=== PATIENT | male | born 1980 | race American Indian/Alaskan Native ===

== ENCOUNTER 2021-03-24 12:35 | Outpatient (REF) | payer MEDICAID, SELFPAY ==
[2021-03-24 12:54] LABS: COVID-19 Test Negative (Negative)
== END 2021-03-24 12:36 | disposition home or self-care (01) ==
LOC: HO.LAB 12:35
PROVIDERS: Visit Provider Internal Medicine
DX: Z20.822 Contact with and (suspected) exposure to COVID-19 (principal)
CPT/HCPCS: 36415; 87635; C9803

== ENCOUNTER 2021-07-08 15:39 | Outpatient (REF) | payer MEDICAID, SELFPAY ==
[2021-07-08 16:12] LABS: COVID-19 Test Negative (Negative)
== END 2021-07-08 15:40 | disposition home or self-care (01) ==
LOC: HO.LAB 15:39
PROVIDERS: PCP Nurse Practitioner Family; Visit Provider Internal Medicine
DX: Z20.822 Contact with and (suspected) exposure to COVID-19 (principal)
CPT/HCPCS: 36415; 87635; C9803

== ENCOUNTER 2023-07-28 18:27 | Emergency (ER) | payer MEDICAID, SELFPAY ==
--- NOTE | ~2023-07-28 | CT_ITS ---
EXAMINATION: CT HEAD WITHOUT CONTRAST CT FACIAL BONES WITHOUT CONTRAST CLINICAL INFORMATION: Trauma. Facial trauma. COMPARISON: None available. TECHNIQUE: Imaging was performed from the skull base to vertex without intravenous administration of contrast. In addition, helical noncontrast CT imaging was acquired through the facial bones and source images were reviewed along with axial reconstructions and sagittal and coronal MPRs. This CT examination was performed using dose optimization techniques as appropriate, variously including the following: *Automated exposure control. *Adjustment of mA and/or kV according to patient size (this includes techniques or standardized protocols for targeted exams where dose is matched to indication/reason for exam; i.e. extremities or head). *Use of iterative reconstruction technique. DLP: 1223 mGy-cm FINDINGS: Head: There is no evidence of acute intracranial hemorrhage or edematous territorial infarction. Armas-white matter differentiation is preserved. There is no abnormal attenuation within the brain parenchyma. The ventricles are normal in morphology and size. No evidence for obstructive hydrocephalus. No abnormal mass effect or midline shift. No extra-axial fluid collections. No acute soft tissue or osseous calvarial abnormalities. Maxillofacial Bones: Multifocal odontogenic enamel erosions. Periapical lucencies associated with the maxillary left 3rd molar. The maxillary right central and lateral incisors are absent. There is a mildly displaced fracture extending through the alveolar process of the maxilla in this distribution. Moderate soft tissue edema/hematoma of the upper lip. No evidence of additional maxillofacial bone fractures. The zygomatic arches remain intact. No nasal bone fracture. The nasal septum remains midline. No evidence of additional mandibular or maxillary fracture. The mandibular condyles remain well-seated in their respective temporal articular grooves. Normal appearance of the intraconal and extraconal fat. No evidence of traumatic injury to the extraocular musculature or globes. Mild mucosal thickening of the paranasal sinuses. The mastoid air cells and middle ear cavities are clear. No layering fluid collections. CT/CT facial bones wo IV con IMPRESSION: 1. No evidence of acute intracranial hemorrhage or edematous territorial infarction. 2. The maxillary right central and lateral incisors are absent. There is a mildly displaced fracture extending through the alveolar process of the maxilla in this distribution. Moderate soft tissue edema/hematoma of the upper lip. 3. No additional acute fractures of the maxillofacial bones.
[2023-07-28 20:23] VITALS: BP 155/65; PULSE 55; TEMP 36.4; O2SAT 97; BMI 37.5
--- NOTE | 2023-07-28 22:43 | ED.HEATRA ---
HPI - Head Injury General Chief complaint: Dental/Oral Stated complaint: Dental pain Time Seen by Provider: 07/28/23 22:34 Source: patient Mode of arrival: ambulatory Limitations: no limitations History of Present Illness HPI Narrative: 42 yo male with no sig PMH not on thinners was playing flag football this AM was struck in mouth area by male with forearm and knocked to ground with LOC x 30 seconds. Lost two front teeth did not put teeth in any solution. Has not had any bleeding. Has facial pain and headache. He has not vomited. MD Complaint: head injury Onset (ago): hour(s) (12) Mechanism of Injury: sports related injury Place: outdoors Loss of Consciousness: yes and second(s) (30) Location of injury: face Severity: moderate Quality: dull and aching Radiation: none Other Injuries: dental Associated symptoms: denies other symptoms Related Data Previous Rx's Medication Instructions Recorded amoxicillin 875 mg-potassium 1 tab PO BID #14 tabs 07/28/23 clavulanate 125 mg tablet hydrocodone 5 mg-acetaminophen 325 1 tab PO Q6H PRN pain #15 tabs 07/28/23 mg tablet ondansetron 4 mg disintegrating 4 mg PO Q8H PRN nausea and 07/28/23 tablet vomiting #20 tabs Allergies Allergy/AdvReac Type Severity Reaction Status Date / Time No Known Allergies Allergy Verified 07/28/23 20:23 Review of Systems Review of Systems: Constitutional : No Fever, No Chills, No Fatigue ENT/Mouth : No sore throat, No Rhinorrhea, pos lippain, pos loss of tooth Eyes: No Eye Pain, No Swelling, No Redness, Cardiovascular : No Chest Pain, No SOB, No Dyspnea on Exertion Respiratory : No Cough, No Sputum Gastrointestinal : No Nausea, No Vomiting, No Diarrhea, No abdominal Pain Genitourinary : No Dysuria, No Urinary Frequency, No Hematuria, Musculoskeletal : No joint pain, No Myalgias, No Joint Swelling, no neck pain Skin : No Skin Lesions, No rash Neuro : No Weakness, No Numbness, No Dizziness, positive Headache Psych : No Anxiety/Panic, No Depression All other systems reviewed and are negative PMFSH Past Medical History Attestation statement: The following information was validated with the patient. Medical History No pertinent past medical history Social History Social History (Updated 07/28/23 @ 23:22 by Aide Huertas DO) Patient Tobacco Use Status: Tobacco use Unknown Physical Exam Vital Signs: Vital Signs: Last Vital Signs Temp 97.5 F 07/28/23 20:23 Pulse 55 07/28/23 20:23 BP 155/65 H 07/28/23 20:23 Pulse Ox 97 07/28/23 20:23 O2 Del Method Room Air 07/28/23 20:23 BMI result Body Mass Index 37.5 Appearance: Alert. Oriented X3. No acute distress. Eyes: Pupils equal, round and reactive to light. ENT: Pharynx upper lip contused no laceration both front incisors are missing no lacerations sockets not bleeding, tooth not in solution x 12 hours cannot salvage. no nasal septal hematoma, no raccoon no wang sign, normal TMs bilaterally Neck: Normal inspection. Neck supple. no midline ttp CVS: Normal heart rate and rhythm. Pulses normal. Respiratory: No respiratory distress. Breath sounds normal. Abdomen: Soft and nontender. Skin: Skin warm and dry. Normal skin color. Normal skin turgor. Extremities: No lower extremity edema. No calf ttp Neuro: Oriented X 3. No motor deficit. No sensory deficit. Medical Decision Making Medical Decision Making MDM Narrative: 42 yo male with no PMH not on thinners here with c/o facial trauma - will need CT head given LOC and facial imaging cannot return tooth given timeline and not in solution will need pain medications and antibiotics refer to dentist and possible OMFS no signs of basilar skull fracture GCS 15 which is 12 hours ago. he is not toxic no other injuries. Differential Diagnosis Differential Diagnoses: The differential diagnosis associated with the presentation includes dental trauma. abrasions, concussion, facial fracture Admission/Observation Consideration of admission/observation: Escalation of care including admission/observation considered can follow up with dental surgery and OMFS Independent Interpretation I performed an independent interpretation of an: CT Scan (no ICH) Radiology Impression Discussion of test interpretation with radiology: I have reviewed the radiologist's reading. Prescription Management I considered prescription management with: Pain Medication and Antibiotic Discharge Plan Discharge Clinical Impression: Avulsion of multiple teeth due to trauma Qualifiers: Encounter type: initial encounter Qualified Code(s): S03.2XXA - Dislocation of tooth, initial encounter Maxillary fracture Qualifiers: Encounter type: initial encounter Fracture type: closed Laterality: unspecified laterality Qualified Code(s): S02.401A - Maxillary fracture, unspecified side, initial encounter for closed fracture Patient Disposition: Home, Self-Care Instructions: Facial Fracture (ED), Acute Dental Trauma (ED) Additional Instructions: take a probiotic while on augmentin - more than 8 loose stools a day while on antibiotic is not normal seek care return for facial swelling, yellow drainage from tooth sockets, fevers, severe pain, confusion or any other concerns. finish the antibiotics call the dentist in the morning Multifocal odontogenic enamel erosions. Periapical lucencies associated with the maxillary left 3rd molar. The maxillary right central and lateral incisors are absent. There is a mildly displaced fracture extending through the alveolar process of the maxilla in this distribution. Moderate soft tissue edema/hematoma of the upper lip. SOFT DIET NO CRUNCHY CHEWY HOT FOOD FOR 2 WEEKS, NO SPORTS FOR 4 WEEKS PLEASE FOLLOW UP WITH THE DENTIST SUNDAY AND CALL ORAL SURGEON [facility] [phone] or [phone] Prescriptions: New hydrocodone-acetaminophen 5-325 mg tablet 1 tab PO Q6H PRN (Reason: pain) Qty: 15 0RF Rx Instructions: partial fill okay; Partial Fill upon patient request. ondansetron 4 mg tablet,disintegrating 4 mg PO Q8H PRN (Reason: nausea and vomiting) Qty: 20 0RF amoxicillin-pot clavulanate 875-125 mg tablet 1 tab PO BID Qty: 14 0RF Stand Alone Forms: Work/School Release
[2023-07-28] MEDS: HYDROcodone Bit/Acetam 5/325 TABLET 1 TAB PO (23:27)
[2023-07-28] MEDS: Amoxicillin/Potassium Clav 875 MG TABLET PO (23:28)
[2023-07-28] MEDS: Ondansetron ODT 4 MG TAB.RAPDIS TRANSLINGU (23:28)
== END 2023-07-29 00:26 | disposition home or self-care (01) ==
PROVIDERS: Emergency Provider Emergency Medicine
DX: S02.42XA Fracture of alveolus of maxilla, initial encounter for closed fracture (principal); S03.2XXA Dislocation of tooth, initial encounter; S00.531A Contusion of lip, initial encounter; W50.0XXA Accidental hit or strike by another person, initial encounter; Y93.62 Activity, american flag or touch football; Y92.9 Unspecified place or not applicable; Y99.9 Unspecified external cause status
CPT/HCPCS: 70450; 70486; 99283; 99284

== ENCOUNTER 2024-07-21 10:23 | Emergency (ER) | payer MEDICAID, SELFPAY ==
--- NOTE | ~2024-07-21 | XR_ITS ---
EXAMINATION: XR SHOULDER, RIGHT CLINICAL INFORMATION: rt shoulder injury, patient denies injury COMPARISON: None TECHNIQUE: Four views of the shoulder. FINDINGS: Chronic-appearing comminuted fracture of the distal clavicle with widening of the coracoclavicular joint space and mild widening of the acromioclavicular joint which may reflect acromioclavicular injury, possibly chronic. Soft tissues are unremarkable. Visualized portion of lung appears clear. XR/XR shoulder RT min 2V IMPRESSION: 1. Chronic-appearing comminuted fracture of the distal clavicle with widening of the coracoclavicular joint space and mild widening of the acromioclavicular joint which may reflect sequelae acromioclavicular joint injury, possibly chronic. Recommend correlation with history of trauma. Electronically signed by: Oxana Phillips MD 07/21/2024 12:08 PM EDT
[2024-07-21 10:30] VITALS: BP 155/92; PULSE 67; RESP 18; TEMP 36.6; O2SAT 98; BMI 37.5
--- NOTE | 2024-07-21 12:15 | ED_ITS ---
HPI - Extremity Problem General Chief complaint: Extremity Injury, Upper Stated complaint: R shoulder inj work inj Time Seen by Provider: 07/21/24 11:06 Source: patient Mode of arrival: ambulatory Limitations: no limitations History of Present Illness ED Provider: Pricilla BROWN HPI Narrative: 43-year-old male presents with severe right shoulder pain for the past 2 days status post work-related injury, patient was lifting a large suitcase that was approximately 200 lb, he reports he lost his balance falling right onto his right shoulder since then has been having pain that is worse with movement better at rest. No associated numbness or tingling. He reports decreased range of motion secondary to pain. Denies any previous issues with his right shoulder. He tells me he is still able to move it however with excruciating 10/10 pain. When he fell he did not hit his head no loss of consciousness no neck pain. Patient denies chest pain, shortness of breath, headache, vision [place], dizziness, weakness, nausea, vomiting, abdominal pain. Related Data Previous Rx's ?Medication ?Instructions ?Recorded amoxicillin 875 mg-potassium 1 tab PO BID #14 tabs 07/28/23 clavulanate 125 mg tablet hydrocodone 5 mg-acetaminophen 325 1 tab PO Q6H PRN pain #15 tabs 07/28/23 mg tablet ondansetron 4 mg disintegrating 4 mg PO Q8H PRN nausea and 07/28/23 tablet vomiting #20 tabs ketorolac 10 mg tablet 10 mg PO TID PRN pain 5 days #15 07/21/24 tabs prednisone 20 mg tablet 40 mg (2 x 20 mg) PO DAILY 5 days 07/21/24 #10 tabs Allergies Allergy/AdvReac Type Severity Reaction Status Date / Time No Known Allergies Allergy Verified 07/21/24 10:33 Review of Systems Review of Systems: Yes all other systems are reviewed and are negative PMFSH Past Medical History Attestation statement: The following information was validated with the patient. Source: old records reviewed and nursing notes reviewed Medical History No pertinent past medical history Social History Social History Patient Tobacco Use Status: Tobacco use Unknown Advance Directives: No Advance Directives Information Provided: No Do you have a plan to hurt others: No Plan Physical Exam Vital Signs: Vital Signs: Last Vital Signs Temp 97.9 F 07/21/24 10:30 Pulse 67 07/21/24 10:30 Resp 18 07/21/24 10:30 BP 155/92 H 07/21/24 10:30 Pulse Ox 98 07/21/24 10:30 O2 Del Method Room Air 07/21/24 10:30 BMI result Body Mass Index 37.5 vss Appearance: Alert.? Oriented X3.? No acute distress.? Head: Normocephalic, atraumatic, no step-offs or deformities Eyes: Pupils equal, round and reactive to light.? ENT: Pharynx normal.? Neck: Normal inspection.? Neck supple.? CVS: Normal heart rate and rhythm.? Respiratory: No respiratory distress.? Abdomen: Soft and nontender.? Skin: Skin warm and dry.? Normal skin color.? Normal skin turgor.? Extremities: No lower extremity edema.? No calf ttp. 5/5 strength to left upper extremity and bilateral lower extremities + tenderness to palpation to right distal clavicle all, limited range of motion to right shoulder secondary to pain. However he is able to move it with discomfort in all directions. No wrist drop. 2+ radial and brachial pulses equal bilateral. Normal distal sensation. Capillary refill to upper extremities bilaterally less than 2 seconds. Back: No midline tenderness, no C-spine tenderness, full range of motion, no CVA tenderness bilaterally Neuro: Oriented X 3.? No motor deficit.? No sensory deficit. CN 2-12 intact Medical Decision Making Medical Decision Making MDM Narrative: 43 year old male presents w/ R shoulder pain X 2 days PE 5/5 strength to left upper extremity and bilateral lower extremities + tenderness to palpation to right distal clavicle all, limited range of motion to right shoulder secondary to pain. However he is able to move it with discomfort in all directions. No wrist drop. 2+ radial and brachial pulses equal bilateral. Normal distal sensation. Capillary refill to upper extremities bilaterally less than 2 seconds. HX and PE concerning for ac joint issue vs rotator cuff injury vs inflammatory arthritis. No signs of NV compromise, threat to limb Plan- imaging Differential Diagnosis Differential Diagnoses: The differential diagnosis associated with the presentation includes HX and PE concerning for ac joint issue vs rotator cuff injury vs inflammatory arthritis. No signs of NV compromise, threat to limb Admission/Observation Consideration of admission/observation: Escalation of care including admission/observation considered Possible Lab Data MDM Lab Attestation statement: I reviewed the patient's lab results. Independent Interpretation I performed an independent interpretation of an: Plain X-Ray (XR/XR shoulder RT min 2V IMPRESSION: 1. Chronic-appearing comminuted fracture of the distal clavicle with widening of the coracoclavicular joint space and mild widening of the acromioclavicular joint which may reflect sequelae acromioclavicular joint injury, possibly chronic. Recommend correlati) Radiology Impression Discussion of test interpretation with radiology: I have reviewed the radiologist's reading. External Record Review External record reviewed: Outpatient record Prescription Management I considered prescription management with: Pain Medication Chronic Conditions Patient?s care impacted by: Other (obesity ) Discharge Plan Discharge Clinical Impression: Acute pain of right shoulder Patient Disposition: Home, Self-Care Instructions: Arthralgia (ED), Shoulder Pain (ED) Additional Instructions: Take your medications as prescribed. If you were prescribed antibiotics today, it is important that you take your medication to their entirety, do not skip any doses, do not finish them early. Follow-up with your primary care provider this week. Return to the emergency department with new or worsening symptoms. Such as fevers, chills, chest pain, shortness of breath, nausea, vomiting, dizziness, headache, vision changes, lethargy In case of emergency call 911 Wear your sling only during the day. Practice frequent range of motion exercises throughout the day. Please follow-up with the orthopedic team as soon as possible. Return with any new or worsening symptoms. Toradol has been sent to your pharmacy, you tolerated this well in the department. Please take this as prescribed do not take this with ibuprofen, or other NSAIDs, do not mix this with alcohol. Side effects of this medication including increased risk for bleeding and possible kidney injury. XR/XR shoulder RT min 2V IMPRESSION: 1. Chronic-appearing comminuted fracture of the distal clavicle with widening of the coracoclavicular joint space and mild widening of the acromioclavicular joint which may reflect sequelae acromioclavicular joint injury, possibly chronic. Recommend correlation with history of trauma. Prescriptions: New prednisone 20 mg tablet 40 mg PO DAILY 5 Days Qty: 10 0RF ketorolac 10 mg tablet 10 mg PO TID PRN (Reason: pain) 5 Days Qty: 15 0RF No Action hydrocodone-acetaminophen 5-325 mg tablet 1 tab PO Q6H PRN (Reason: pain) Qty: 15 0RF Rx Instructions: partial fill okay; Partial Fill upon patient request. ondansetron 4 mg tablet,disintegrating 4 mg PO Q8H PRN (Reason: nausea and vomiting) Qty: 20 0RF amoxicillin-pot clavulanate 875-125 mg tablet 1 tab PO BID Qty: 14 0RF Referrals: [facility] [place] [facility] [Provider Group] - 2 days [facility] [Primary Care Provider] - 2 days Print Language: Emirati
[2024-07-21] MEDS: Ketorolac Tromethamine 30 MG/ML VIAL IM (12:51)
[2024-07-21] MEDS: Acetaminophen 325 MG TABLET 650 MG PO (12:51)
[2024-07-21 13:01] VITALS: BP 155/92; PULSE 67; RESP 18; TEMP 36.6; O2SAT 98
== END 2024-07-21 13:24 | disposition home or self-care (01) ==
PROVIDERS: Emergency Provider Emergency Medicine
DX: M25.511 Pain in right shoulder (principal); S49.81XA Other specified injuries of right shoulder and upper arm, initial encounter; X50.0XXA Overexertion from strenuous movement or load, initial encounter; Y93.89 Activity, other specified; Y92.89 Other specified places as the place of occurrence of the external cause; Y99.0 Civilian activity done for income or pay
CPT/HCPCS: 73030; 96372; 99283; 99284; J1885

== ENCOUNTER 2024-08-28 10:56 | Emergency (ER) | payer MEDICAID, SELFPAY ==
[2024-08-28 11:02] VITALS: BP 148/76; PULSE 72; RESP 20; TEMP 36.5; O2SAT 100; BMI 37.9
--- NOTE | 2024-08-28 11:04 | ED.GENADULT ---
HPI - General Adult General Chief complaint: Extremity Problem Stated complaint: Pain R shoulder/arm Time Seen by Provider: 08/28/24 11:56 Source: patient Mode of arrival: ambulatory Limitations: no limitations History of Present Illness ED Provider: CATA PRIEST PA-C HPI narrative: 44 year old male with no significant past medical history presents to the ED today for right shoulder pain x1 month. Patient reports fall onto right shoulder while at work 1 month ago. He was evaluated at [facility] however was unable to bulk picker his pain medication from the pharmacy due to lack of insurance and inability to pay for them. He also denies following up with work connection or ortho following this appointment. States he was able to get [employer] yesterday and presents for further evaluation. Reports continued pain to right shoulder, exacerbated with lifting the right shoulder. He is not taking any [id number] pain medications at home. Denies numbness/tingling/weakness down the right upper extremity. Denies new fall or trauma. Related Data Previous Rx's ?Medication ?Instructions ?Recorded amoxicillin 875 mg-potassium 1 tab PO BID #14 tabs 07/28/23 clavulanate 125 mg tablet hydrocodone 5 mg-acetaminophen 325 1 tab PO Q6H PRN pain #15 tabs 07/28/23 mg tablet ondansetron 4 mg disintegrating 4 mg PO Q8H PRN nausea and 07/28/23 tablet vomiting #20 tabs ketorolac 10 mg tablet 10 mg PO TID PRN pain 5 days #15 07/21/24 tabs prednisone 20 mg tablet 40 mg (2 x 20 mg) PO DAILY 5 days 07/21/24 #10 tabs naproxen 500 mg tablet 500 mg PO BID PRN pain (scale 08/28/24 score 1-3) #20 tabs prednisone 20 mg tablet 40 mg (2 x 20 mg) PO DAILY 5 days 08/28/24 #10 tabs Allergies Allergy/AdvReac Type Severity Reaction Status Date / Time No Known Allergies Allergy Verified 08/28/24 11:06 Review of Systems Review of Systems: Constitutional: No fever, chills, fatigue, night sweats, weight changes ENT/Mouth: No ear pain, hearing loss, nasal congestion, sinus pain, rhinorrhea, sore throat Eyes: No eye pain, swelling, redness, vision changes, discharge Cardio: No chest pain, palpitations, ENCISO, orthopnea, peripheral edema Pulm: No SOB, cough, sputum, wheezing, dyspnea, hemoptysis GI: No nausea, vomiting, hematemesis, abdominal pain, diarrhea, constipation, hematochezia, melena : No irregular bleeding, dysuria, frequency, urgency, hesitancy, hematuria, flank pain, urinary flow changes, urinary incontinence or retention MSK: No back pain, neck pain, joint pain, myalgias, +right shoulder pain Skin: No lesions, rashes Neuro: No weakness, numbness, paresthesias, LOC, dizziness, headache Psych: No anxiety/panic, depression, SI/HI, AH/VH All other systems reviewed and are negative. [facility] Past Medical History Attestation statement: The following information was validated with the patient. Source: old records reviewed and nursing notes reviewed Medical History No pertinent past medical history Social History Social History Patient Tobacco Use Status: Tobacco use Unknown Physical Exam ED Vital Signs: Vital Signs - 24 hr 08/28/24 11:02 08/28/24 12:50 Temperature 97.7 F 97.7 F Pulse Rate 72 72 Respiratory Rate 20 18 Blood Pressure 148/76 H 148/76 H Pulse Oximetry 100 98 Oxygen Delivery Method Room Air Room Air BMI result Body Mass Index 37.9 hypertensive, vitals otherwise wnl General: Well appearing, in no acute distress. Skin: Warm, dry, intact. No rashes or lesions. Head: Normocephalic, atraumatic. Cardiac: Chest wall symmetric. RRR. Lungs: Normal respiratory effort without accessory muscle use. CTA bilaterally. Back: No midline spinous or paraspinal tenderness. No step off deformity. Ext: +FROM intact to right shoulder with minimal discomfort on abduction. no ttp over glenohumeral joint or clavicle. No palpable deformity or crepitus. 2+ radial/ulnar pulse intact. sensation intact. Neuro: AOx3. Normal speech. Ambulating with steady gait. Course Course Course Narrative: This is a rapid medical exam performed by Wagner Larose NP: Additional HPI, ROS, PE not included below will be deferred to primary provider. Patient is a 44-year-old right hand dominant male presenting to the ED with complaint of ongoing right shoulder pain since a work related injury in July. States he has been unable to follow up with ortho because work did not file a claim and he just got [employer] yesterday. States has been out of work since the injury. Never picked up his medications prescribed at first visit. Medications Administered Discontinued Medications Generic Name Dose Route Start Last Admin Trade Name Leonela PRN Reason Stop Dose Admin Ketorolac Tromethamine 30 mg 08/28/24 12:17 08/28/24 12:33 Ketorolac Tromethamine 30 Mg/Ml Vial IM 08/28/24 12:18 30 mg ONCE ONE Administration Procedures Orthopedic Splinting/Casting Injury #1: Side: right Upper Extremity Immobilizer: sling/shoulder immobilizer Medical Decision Making Medical Decision Making MDM Narrative: 44 year old male with no significant past medical history presents to the ED today for right shoulder pain x1 month. Hypertensive, vitals otherwise wnl. On exam of right shoulder, FROM intact to right shoulder with minimal discomfort on abduction. no ttp over glenohumeral joint or clavicle. No palpable deformity or crepitus. 2+ radial/ulnar pulse intact. sensation intact. no cervical midline spinous tenderness or step off deformity. Differential diagnosis includes msk sprain/ strain, fracture. Unlikely nv compromise, threat to limb. Given no new injury/ trauma and no acute change in pain, I do not feel as though repeat imaging is warranted at this time. Toradol provided for pain control in ED. Will send prednisone and naproxen to pharmacy. patient placed in sling for comfort. Provided him with new referral to ortho and work connection. Patient has remained stable throughout ED visit today. Discussed worrisome signs and symptoms and when to return to the ED. All questions answered at this time. Patient is agreeable with disposition and stable for discharge. Differential Diagnosis Differential Diagnoses: The differential diagnosis associated with the presentation includes As above Admission/Observation Not indicated Independent Interpretation I performed an independent interpretation of an: Plain X-Ray Interpretation: X-ray right shoulder without acute fracture, agree with radiologist's interpretation. Radiology Impression Discussion of test interpretation with radiology: I have reviewed the radiologist's reading. Radiologist Impression: EXAMINATION: XR SHOULDER, RIGHT CLINICAL INFORMATION: rt shoulder injury, patient denies injury COMPARISON: None TECHNIQUE: Four views of the shoulder. FINDINGS: Chronic-appearing comminuted fracture of the distal clavicle with widening of the coracoclavicular joint space and mild widening of the acromioclavicular joint which may reflect acromioclavicular injury, possibly chronic. Soft tissues are unremarkable. Visualized portion of lung appears clear. XR/XR shoulder RT min 2V IMPRESSION: 1. Chronic-appearing comminuted fracture of the distal clavicle with widening of the coracoclavicular joint space and mild widening of the acromioclavicular joint which may reflect sequelae acromioclavicular joint injury, possibly chronic. Recommend correlation with history of trauma. External Record Review External record reviewed: Inpatient record Prescription Management I considered prescription management with: Pain Medication (naproxen) and Other (prednisone) Social Determinants Patient?s care significantly limited by Social Determinants of Health including: Other Social Determinant of Health Critical Care Time Critical Care Time Critical Care Time: No Discharge Plan Discharge Clinical Impression: Muscle strain of right shoulder region Patient Disposition: Home, Self-Care Instructions: Muscle Strain (ED), Rotator Cuff Injury (ED), How to Use a Sling (ED) Additional Instructions: You were evaluated in the ED today for right shoulder pain. Naproxen is a pain medication that has been sent to your pharmacy for you to take as needed for right shoulder pain. Prednisone is a steroid that has been sent to your pharmacy for you to take over the next 5 days as prescribed. As this was a work-related injury, please follow up with the work connection. Information provided below. Please follow up with the front office specialist. A referral has been provided. Call them to make an appointment, they will not call you. Return with new or worsening symptoms. In the case of an emergency call 911. [facility] [address] [facility] [id number] Prescriptions: New prednisone 20 mg tablet 40 mg PO DAILY 5 Days Qty: 10 0RF naproxen 500 mg tablet 500 mg PO BID PRN (Reason: pain (scale score 1-3)) Qty: 20 0RF No Action hydrocodone-acetaminophen 5-325 mg tablet 1 tab PO Q6H PRN (Reason: pain) Qty: 15 0RF Rx Instructions: partial fill okay; Partial Fill upon patient request. ondansetron 4 mg tablet,disintegrating 4 mg PO Q8H PRN (Reason: nausea and vomiting) Qty: 20 0RF amoxicillin-pot clavulanate 875-125 mg tablet 1 tab PO BID Qty: 14 0RF prednisone 20 mg tablet 40 mg PO DAILY 5 Days Qty: 10 0RF ketorolac 10 mg tablet 10 mg PO TID PRN (Reason: pain) 5 Days Qty: 15 0RF Referrals: [facility] [Provider Group] - 1 week (Chronic-appearing comminuted fracture of the distal clavicle with widening of the coracoclavicular joint space and mild widening of the acromioclavicular joint which may reflect sequelae acromioclavicular joint injury, possibly chronic. Recommend correlation with history of trauma.) [facility] [Outside] Center,[facility] [Primary Care Provider] - Stand Alone Forms: Work/School Release Interventions: ED Discharge Assessment Last Done: 08/28/24 12:50 Discharge Date/Time: 08/28/24 12:51 Print Language: Yakut
[2024-08-28] MEDS: Ketorolac Tromethamine 30 MG/ML VIAL IM (12:33)
[2024-08-28 12:50] VITALS: BP 148/76; PULSE 72; RESP 18; TEMP 36.5; O2SAT 98
== END 2024-08-28 12:51 | disposition home or self-care (01) ==
PROVIDERS: Emergency Provider Emergency Medicine
DX: M25.511 Pain in right shoulder (principal)
CPT/HCPCS: 96372; 99283; 99284; J1885